=== PATIENT | female | born 1990 | race African-American/Black ===

== ENCOUNTER 2022-10-27 05:07 | Emergency (ER) | payer SELFPAY ==
[~2022-10-27] VITALS: Ht 162.6 cm; Wt 85.4 kg
[2022-10-27 05:31] VITALS: BP 129/81
[2022-10-27] MEDS ORDERED: IBUPROFEN 600MG TABLET PO ONE (09:00)
[2022-10-27 11:06] LABS: BASOPHILS % 0.8 % (0.0-2.0); EOSINOPHILS % 1.8 % (0.0-5.0); HEMATOCRIT. 40.8 % (36.0-48.0); HEMOGLOBIN. 13.5 g/dL (12.0-16.0); LYMPHOCYTES % 27.1 % (20.0-50.0); MEAN CORPUSCULAR HEMOGLOBIN 30.1 pg (28.0-32.0); MONOCYTES % 6.2 % (2.0-8.0); NEUTROPHILS % 64.1 % (40.0-76.0); PLATELET 406 x1000/uL (130-400); RED BLOOD CELL COUNT 4.48 mill/uL (4.2-5.4); RED CELL DISTRIBUTION WIDTH 13.2 % (11.6-14.6)
[2022-10-27 11:16] LABS: CHLORIDE 102 mEq/L (98-107)
[2022-10-27 11:51] LABS: B-HCG QUANTITATIVE < 1 mIU/mL (<3)
[2022-10-27 14:18] LABS: CLARITY URINE CLEAR (CLEAR); COLOR URINE YELLOW (YELLOW); KETONES URINE 1+ (NEGATIVE); NITRITE URINE NEGATIVE (NEGATIVE); OCCULT BLOOD URINE 2+ (NEGATIVE); PH URINE 6.5 (4.5-8.0); PROTEIN URINE TRACE (NEGATIVE)
[2022-10-27 14:19] LABS: LEUKOCYTE ESTERASE URINE 1+ (NEGATIVE)
== END 2022-10-27 14:04 | disposition home or self-care (01) ==
LOC: ER 05:07
DX: D25.9 Leiomyoma of uterus, unspecified (principal)
CPT/HCPCS: 36415; 76830; 76856; 80053; 81003; 81025; 84702; 85025; 99284